=== PATIENT | male | born 1945 | race Caucasian/White ===

== ENCOUNTER 2020-05-07 01:30 | Emergency (ER) | payer MEDICARE, MEDICAID ==
[2020-05-07 01:47] LABS: BASOPHILS # (AUTO) 0.1 10^3/uL (0.0-0.1); BASOPHILS % (AUTO) 0.7 %; EOSINOPHILS # (AUTO) 0.6 10^3/uL (0.0-0.7); EOSINOPHILS % (AUTO) 7.6 %; LYMPHOCYTES # (AUTO) 2.3 10^3/uL (1.5-3.5); MEAN CORPUSCULAR HEMOGLOBIN 34.9 pg (27.0-31.0); MEAN CORPUSCULAR HGB CONC 33.7 g/dL (32.0-36.0); MEAN CORPUSCULAR VOLUME 103.5 fL (80.0-94.0); MEAN PLATELET VOLUME 10.2 fL (7.4-11.4); MONOCYTES # (AUTO) 0.8 10^3/uL (0.0-1.0); MONOCYTES % (AUTO) 9.6 %; NEUTROPHILS # (AUTO) 4.6 10^3/uL (1.5-6.6); NEUTROPHILS % (AUTO) 54.9 %; PLT - PLATELET COUNT 234 10^3/uL (130-450); RED BLOOD COUNT 4.01 10^6/uL (4.70-6.10); WHITE BLOOD COUNT 8.4 x10^3/uL (4.8-10.8)
--- NOTE | 2020-05-07 01:55 | ED Physician Documentation ---
PD HPI CHEST PAIN - Stated complaint Stated Complaint: CHEST PAIN - Chief complaint Chief Complaint: Cardiac - History obtained from History obtained from: Patient - History of Present Illness Timing - onset: Enter time (00:00 (midnight)) Timing - onset during: Rest Timing - details: Abrupt onset Pain level now: 0 Quality: Pain Location: Left shoulder/arm Radiation: Other (no radiation from left shoulder) Improved by: Nothing Worsened by: Other (no exacerbating factors) Associated symptoms: No: Shortness of air, Diaphoresis, Nausea, Vomiting, Feeling faint / dizzy, General Weakness, Palpitations, Cough Similar symptoms before: Has not had sx before Recently seen: Not recently seen Review of Systems Constitutional: reports: Reviewed and negative Cardiac: reports: Reviewed and negative Respiratory: reports: Reviewed and negative GI: reports: Reviewed and negative PD PAST MEDICAL HISTORY - Past Medical History Past Medical History: Yes Musculoskeletal: Osteoarthritis Other Past Medical History: leukemia - Past Surgical History Cardiovascular: Angioplasty - Present Medications Home Medications: Ambulatory Orders Medication Instructions Recorded Confirmed [place] 400 mg PO DAILY 05/07/20 - Allergies Allergies/Adverse Reactions: Allergies Allergy/AdvReac Type Severity Reaction Status Date / Time No Known Drug Allergies Allergy Verified 05/07/20 01:41 - Living Situation Living Arrangement: reports: At home - Social History Does the pt smoke?: No PD ED PE NORMAL - Vitals Vital signs reviewed: Yes - General General: Alert and oriented X 3, No acute distress, Well developed/nourished - HEENT HEENT: Moist mucous membranes - Cardiac Cardiac: RRR, No murmur, No gallop, No rub - Respiratory Respiratory: No respiratory distress, Clear bilaterally - Abdomen Abdomen: Soft, Non tender - Derm Derm: Normal color, Warm and dry, No rash - Extremities Extremities: Normal ROM s pain Results - Vitals Vitals: Vital Signs - 24 hr 05/07/20 05/07/20 01:44 03:37 Temperature 36.8 C Heart Rate 53 L Respiratory 12 Rate Blood Pressure 111/67 Blood Pressure 119/75 [Left] Blood Pressure 114/78 [Right] O2 Saturation 97 Oxygen O2 Source Room air - EKG (time done) No standard instances Rate: Rate (enter#) (58) Rhythm: NSR [place]: Normal (borderline LAD) Intervals: Normal AR QRS: Normal Ischemia: Normal ST segments - Labs Labs: Laboratory Tests 05/07/20 05/07/20 05/07/20 01:40 01:40 01:40 WBC 8.4 RBC 4.01 L Hgb 14.0 Hct 41.5 L MCV 103.5 H MCH 34.9 H MCHC 33.7 RDW 13.0 Plt Count 234 MPV 10.2 Neut # (Auto) 4.6 Lymph # (Auto) 2.3 [place] # (Auto) 0.8 Eos # (Auto) 0.6 Baso # (Auto) 0.1 Absolute Nucleated RBC 0.00 Nucleated RBC % 0.0 Sodium 140 Potassium 3.6 Chloride 104 Carbon Dioxide 26 Anion Gap 10.0 BUN 29 H Creatinine 1.5 H Estimated GFR (MDRD) 46 L Glucose 110 H Calcium 9.0 Total Bilirubin 1.1 H AST 23 ALT 16 Alkaline Phosphatase 70 Troponin I High Sens 4.9 Total Protein 6.6 L Albumin 4.0 Globulin 2.6 Albumin/Globulin Ratio 1.5 Lipase 50 - Rads (name of study) chest xray Radiology: Prelim report reviewed, See rad report PD MEDICAL DECISION MAKING - ED course Complexity details: reviewed results, re-evaluated patient, considered differential, d/w patient Departure - Departure Disposition: 01 Home, Self Care Clinical Impression: Chest pain Condition: Good Instructions: ED Chest Pain Atypical Unkn Cause Discharge Date/Time: 05/07/20 03:48
[2020-05-07 02:01] LABS: ALBUMIN/GLOBULIN RATIO 1.5 (1.0-2.2); BILIRUBIN,TOTAL 1.1 mg/dL (0.2-1.0); CREATININE 1.5 mg/dL (0.6-1.2); TOTAL PROTEIN 6.6 g/dL (6.7-8.2)
[2020-05-07 03:49] VITALS: BP 111/67
--- NOTE | 2020-05-07 08:55 | XRAY Report ---
PROCEDURE: Chest 1 View X-Ray INDICATIONS: Chest pain TECHNIQUE: One view of the chest was acquired. COMPARISON: None FINDINGS: Surgical changes and devices: Cholecystectomy clips. Lungs and pleura: No pleural effusions or pneumothorax. Lungs are clear. Mediastinum: Mediastinal contours appear normal. Heart size is normal. Bones and chest wall: No suspicious bony lesions. Overlying soft tissues appear unremarkable. IMPRESSION: No acute cardiopulmonary disease process. Reviewed by: Giovana Howard MD, PhD on 05/07/2020 8:54 AM [facility] Approved by: Giovana Howard MD, PhD on 05/07/2020 8:54 AM [facility] Station ID: [id number]
== END 2020-05-07 03:48 | disposition home or self-care (01) ==
LOC: ED 01:30
DX: R07.9 Chest pain, unspecified (principal); M25.512 Pain in left shoulder; Z85.6 Personal history of leukemia
CPT/HCPCS: 36415; 80053; 83690; 84484; 85025; 93005; 99281; 99284

== ENCOUNTER 2023-02-10 09:03 | Emergency (ER) | payer MEDICARE, MEDICAID ==
[2023-02-10 09:26] VITALS: BP 135/67; O2SAT 100
--- NOTE | 2023-02-10 10:19 | ED Physician Documentation ---
PD HPI LOWER EXT INJURY - Stated complaint Stated Complaint: LT LEG INJ - Chief complaint Chief Complaint: Trauma Ext - History obtained from History obtained from: Patient - History of Present Illness PD HPI LOW EXT INJURY LOCATION: Left, Lower leg, Calf Type of injury: Other (he was pushing boat up to top of auto roof, pushing up hard and was on balls of feet, when felt a suddden snap and pain lower left calf. Pain with walking.) Where injury occurred: Home Timing - onset: Today Timing - duration: Hours (1-2) Timing - details: Abrupt onset, Still present Worsened by: Moving, Palpating, Other (walking and plantarflexing.) Associated symptoms: Weakness (able to plantarflex but feels weaker.). No: Numbness Similar symptoms before: Has not had sx before Review of Systems Constitutional: reports: Other (no recent URI nor infections; no recent antibiotics.) Skin: denies: Rash, Lesions, Abrasion (s), Laceration (s) Musculoskeletal: reports: Extremity pain (lower left calf.). denies: Back pain Neurologic: denies: Focal weakness, Numbness PD PAST MEDICAL HISTORY - Past Medical History Cardiovascular: None Respiratory: None Neuro: None Endocrine/Autoimmune: None GI: None : None HEENT: None Psych: None Musculoskeletal: Osteoarthritis Derm: None - Past Surgical History Past Surgical History: Yes General: Cholecystectomy, Appendectomy Ortho: Other Cardiovascular: Angioplasty - Present Medications Home Medications: Ambulatory Orders Medication Instructions Recorded Confirmed [place] 400 mg PO DAILY 05/07/20 HYDROcod/ACETAM 5/325 [[place] 5/325] 1 ea PO Q8H PRN #15 tablet 02/10/23 - Allergies Allergies/Adverse Reactions: Allergies Allergy/AdvReac Type Severity Reaction Status Date / Time No Known Drug Allergies Allergy Verified 02/10/23 09:21 - Social History Does the pt smoke?: No Smoking Status: Never smoker Does the pt drink ETOH?: No Does the pt have substance abuse?: No - Immunizations Immunizations are current?: No Immunizations: TDAP >10years/unknown - POLST Patient has POLST: No PD ED PE NORMAL - Vitals Vital signs reviewed: Yes - General General: Alert and oriented X 3, No acute distress, Well developed/nourished - Back Back: No CVA TTP, No spinal TTP - Derm Derm: Normal color, Warm and dry, No rash - Extremities Extremities: No edema, Other (left lower Achilles is still intact but feels softer. He can plantarflex but painful and weaker. Tender with muscle softness at mid/lower calf just proximal to the achilles tendon itself. Feels like partial muscle tear/tendon tear at the mucle fiber/tendon junction. ) - Neuro Neuro: Alert and oriented X 3, No motor deficit, No sensory deficit, Normal speech Results - Vitals Vitals: Vital Signs - 24 hr 02/10/23 09:17 Temperature 36.5 C Heart Rate 56 L Respiratory 16 Rate Blood Pressure 135/67 H O2 Saturation 100 Oxygen O2 Source Room air - Rads (name of study) tib/fib xray Relevant Findings:: Prelim report reviewed, EMP independent interpretation of test (no fractures) PD Medical Decision Making - ED course Complexity details: considered differential (partial upper Achilles tendon rupture with softness but still itegrity of the achilles tendon. Given cast boot and crutches. To follow up with Ortho. I was not sure of his managing splint in equines. ), d/w patient Departure - Departure Disposition: Home, Self Care Clinical Impression: Partial tear of Achilles tendon Qualifiers: Encounter type: initial encounter Laterality: left Qualified Code(s): S86.012A - Strain of left Achilles tendon, initial encounter Condition: Stable Record reviewed to determine appropriate education?: Yes Instructions: ED Tendon Rupture Achilles Follow-Up: Orthopedic Care [Provider Group] Prescriptions: HYDROcod/ACETAM 5/325 [[place] 5/325] 1 ea PO Q8H PRN #15 tablet PRN Reason: Pain Comments: Your x-ray is normal without any bony abnormalities (as likely expected). It does feel like you have a partial tear of the upper part of the Achilles tendon at the junction of the tendon with the broader muscle base. Your tendon is still intact but softer. Use the walking cast boot to reduce motion through the ankle and therefore less pull on the Achilles. Use the crutches for partial to no weightbearing initially. We want the muscle and tendon to heal up firmly. If it fully ruptures it typically will need surgery to reattach. This will likely be a 4-week healing process. I would suggest you follow-up with orthopedics in about a week for reassessment at that time, call for an appointment. Ice elevate and rest the leg and ankle often. This will help reduce swelling. You can use some anti-inflammatory such as ibuprofen or naproxen 2-3 times daily. To that add Tylenol every 4-6 hours if needed for pain or hydrocodone if needed for worse pain. I sent your prescription to your preferred pharmacy. I am prescribing a short course of narcotic pain medication for you. These are potentially dangerous and addictive medications that should be used carefully. These medications may constipate you. Take an [id number] stool softener such as docusate twice daily with plenty of water while taking these medications. If you go 24 hours without a bowel movement, take [id number] MiraLAX, per package instructions. Do not drink or drive while taking these medications. If you received narcotic or sedating medications while in the emergency department do not drive for 24 hours. Store this medication in a safe, secure place and out of reach of children. It is a violation of federal law to give or sell this medication to another person or to use in a manner other than prescribed. The ED will not refill narcotic prescriptions, including prescriptions lost or stolen. You can dispose of unwanted medications at the [facility]'s office or at several pharmacies such as [facility]. Forms: PCP List Discharge Date/Time: 02/10/23 11:10
[2023-02-10] MEDS ORDERED: KETOROLAC 30 MG/ML VIAL IM STA (10:37)
[2023-02-10] MEDS ORDERED: ACETAMINOPHEN 325 MG TABLET PO STA (10:37)
--- NOTE | 2023-02-10 11:01 | XRAY Report ---
PROCEDURE: Tib/Fib LT INDICATIONS: left calf pain abrupt this am while stepping TECHNIQUE: 2 views of the tibia and fibula were acquired. COMPARISON: None. FINDINGS: Bones: Mild scattered degenerative changes. No displaced fracture or dislocation identified of the ti shyla or fibular shafts. Soft tissues: Possibly degenerative or posttraumatic calcification seen dorsal to the talus. Small kn ee joint effusion also partially seen. The Achilles tendon is not well seen due to overlying material IMPRESSION: No displaced injury identified of the tibial or fibular shafts. Scattered degenerative changes. Small knee joint effusion. Possibly chronic small posttraumatic bone fragments seen dorsal to the talus. If there is high concern for further derangement, consider MRI evaluation. Reviewed by: George Schaeffer MD on 02/10/2023 10:59 AM PDT Approved by: George Schaeffer MD on 02/10/2023 10:59 AM PDT Station ID: [id number]
== END 2023-02-10 11:10 | disposition home or self-care (01) ==
LOC: ED 09:03
DX: S86.012A Strain of left Achilles tendon, initial encounter (principal); X58.XXXA Exposure to other specified factors, initial encounter
CPT/HCPCS: 73590; 96372; 99283; 99284; A9270